=== PATIENT | male | born 1990 | race Caucasian/White ===

== ENCOUNTER 2021-11-06 13:28 | Emergency (ER) | payer BC ==
[~2021-11-06] VITALS: Ht 188 cm; Wt 108.9 kg
[2021-11-06 13:34] VITALS: BP 145/103
[2021-11-06] MEDS ORDERED: PEPCID20 MG PO (14:28)
[2021-11-06] MEDS ORDERED: PREDNISONE 20 M20 M1 PO (14:28)
[2021-11-06] MEDS ORDERED: ZYRTEC 10 MG TA10 MG PO (14:28)
== END 2021-11-06 14:52 | disposition home or self-care (01) ==
LOC: M.ERS 13:28
DX: L50.9 Urticaria, unspecified (principal)